=== PATIENT | female | born 1945 | race Caucasian/White ===

== ENCOUNTER 2017-03-01 22:35 | Emergency (ER) | payer OTHER ==
[~2017-03-01] VITALS: Ht 152.4 cm; Wt 90.0 kg
[~2017-03-01 22:35] MED LIST: AMLO5TAB66 PO; ASPI-556 PO; ATEN-189 PO; ATOR40TA28 PO; CALC-472 PO; CHOL2000 PO; CLOP75 PO; DONE5TAB33 PO; FURO20TA4 PO; HYDR25TA PO; LEVO75 PO; LORA10TA7 PO; LOSA50TA37 PO; MONT10TA24 PO; OMEP20 PO; POTA8TAB4 PO; SOLI5 PO
[2017-03-02] MEDS ORDERED: HYDROCODONE/ACETAMINOPHEN 5-325 MG TABLET PO ONE (00:15)
[2017-03-02 01:50] VITALS: BP 137/78
== END 2017-03-02 02:10 | disposition home or self-care (01) ==
LOC: EMS 22:37
DX: S92.252A Displaced fracture of navicular [scaphoid] of left foot, initial encounter for closed fracture (principal); I11.0 Hypertensive heart disease with heart failure; I50.9 Heart failure, unspecified; E03.9 Hypothyroidism, unspecified; E78.00 Pure hypercholesterolemia, unspecified; Z79.82 Long term (current) use of aspirin; W18.09XA Striking against other object with subsequent fall, initial encounter; Y93.01 Activity, walking, marching and hiking; Y92.89 Other specified places as the place of occurrence of the external cause; Y99.8 Other external cause status
CPT/HCPCS: 70486; 99284